=== PATIENT | male | born 1970 | race Caucasian/White ===

== ENCOUNTER 2020-08-10 18:40 | Emergency (ER) | payer OTHER ==
[~2020-08-10] VITALS: Ht 175.3 cm; Wt 77.1 kg
[~2020-08-10 18:40] MED LIST: IBUPROFEN600 MG ORAL; NKM
--- NOTE | 2020-08-10 18:50 | Emergency Room Report ---
History of Present Illness General Chief Complaint: Abdominal Pain Source: Patient Present Illness HPI This patient states that around 1 PM today (6 hours ago) he developed persistent sharp abdominal pain in the middle of his abdomen and on the left side of his abdomen. He has had several episodes of diarrhea. He denies fever or chills. He denies nausea or vomiting. He does have a history of irritable bowel syndrome but states that this is different. He denies dysuria or hematuria. He denies chest pain or shortness of breath. He denies cough or congestion. He has no other complaints. Allergies: Coded Allergies: No Known Allergies (Unverified , 09/18/14) COVID-19 Screening Contact w/high risk pt: No Experienced COVID-19 symptoms?: No COVID-19 Testing performed [employer]PERATOR: No Patient History Past Medical History: none, GERD, other - IBS Past Surgical History: none Social History: Denies: smoking, alcohol use, drug use Reviewed Nursing Documentation: PMH: Agreed; PSxH: Agreed Nursing Documentation-PMH Past Medical History: No Stated History Review of Systems All Other Systems: negative except mentioned in HPI Physical Exam Vital Signs Date Time Temp Pulse Resp B/P (MAP) Pulse Ox O2 Delivery O2 Flow Rate FiO2 08/10/20 18:44 97.5 90 18 149/96 (113) 95 Room Air Sp02 EP Interpretation: reviewed, normal General Appearance: no apparent distress, alert, GCS 15, non-toxic Head: normocephalic, atraumatic Eyes: bilateral eye normal inspection, bilateral eye PERRL ENT: hearing grossly normal, normal pharynx, no angioedema, normal voice Neck: full range of motion, supple/symm/no masses Respiratory: chest non-tender, lungs clear, normal breath sounds, no respiratory distress, no retraction, no accessory muscle use, speaking full sentences Cardiovascular #1: regular rate, rhythm, no edema Gastrointestinal: normal bowel sounds, soft, non-distended, no guarding, no rebound, tenderness - TTP L. abd and LLQ. Full tender Descending colon. Rectal: deferred Musculoskeletal: back normal, normal range of motion, gait/station normal, non- tender Neurologic: alert, motor strength/tone normal, oriented x3, sensory intact, responsive, speech normal Psychiatric: judgement/insight normal, memory normal, mood/affect normal, no suicidal/homicidal ideation Skin: normal color Medical Decision Making Diagnostic Impression: Primary Impression: Colitis ER Course This patient is found to have colitis. Likely this is infectious. I will go ahead and place the patient on a course of oral antibiotics. There is no evidence of an emergency medical condition at this time. The patient is given close return precautions and follow-up instructions. Laboratory Tests Test 08/10/20 18:58 White Blood Count 10.1 K/UL (4.8-10.8) Red Blood Count 5.32 M/UL (4.70-6.10) Hemoglobin 16.8 G/DL (14.2-18.0) Hematocrit 51.0 % (42.0-52.0) Mean Corpuscular Volume 96 FL (80-99) Mean Corpuscular Hemoglobin 31.6 PG (27.0-31.0) H Mean Corpuscular Hemoglobin Concent 33.0 G/DL (32.0-36.0) Red Cell Distribution Width 12.2 % (11.6-14.8) Platelet Count 204 K/UL (150-450) Mean Platelet Volume 7.4 FL (6.5-10.1) Neutrophils (%) (Auto) 71.8 % (45.0-75.0) Lymphocytes (%) (Auto) 20.8 % (20.0-45.0) Monocytes (%) (Auto) 5.1 % (1.0-10.0) Eosinophils (%) (Auto) 1.3 % (0.0-3.0) Basophils (%) (Auto) 1.1 % (0.0-2.0) Urine Color [place] Urine Appearance Clear Urine pH 5 (4.5-8.0) Urine Specific [place] 1.020 (1.005-1.035) Urine Protein 1+ (NEGATIVE) H Urine Glucose (UA) Negative (NEGATIVE) Urine Ketones Negative (NEGATIVE) Urine Blood 1+ (NEGATIVE) H Urine Nitrite Negative (NEGATIVE) Urine Bilirubin Negative (NEGATIVE) Urine Ictotest Negative (NEGATIVE) Urine Urobilinogen Normal MG/DL (0.0-1.0) Urine Leukocyte Esterase Negative (NEGATIVE) Urine RBC 2-4 /HPF (0 - 0) H Urine WBC 0 /HPF (0 - 0) Urine Squamous Epithelial Cells Occasional /LPF Urine Bacteria Occasional /HPF (NONE) Urine Mucus Moderate /LPF (NONE/OCC) H Sodium Level 137 MMOL/L (136-145) Potassium Level 3.9 MMOL/L (3.5-5.1) Chloride Level 101 MMOL/L (98-107) Carbon Dioxide Level 26 MMOL/L (21-32) Blood Urea Nitrogen 16 mg/dL (7-18) Creatinine 1.5 MG/DL (0.55-1.30) H Estimated Glomerular Filtration Rate 49.3 mL/min (>60) Glucose Level 109 MG/DL (74-106) H Calcium Level 9.4 MG/DL (8.5-10.1) Total Bilirubin 0.3 MG/DL (0.2-1.0) Aspartate Amino Transferase (AST) 20 U/L (15-37) Alanine Aminotransferase (ALT) 27 U/L (12-78) Alkaline Phosphatase 76 U/L (46-116) Total Protein 8.5 G/DL (6.4-8.2) H Albumin 4.2 G/DL (3.4-5.0) Globulin 4.3 g/dL Albumin/Globulin Ratio 1.0 (1.0-2.7) Lipase 217 U/L (73-393) Urine Opiates Screen Negative (NEGATIVE) Urine Barbiturates Screen Negative (NEGATIVE) Phencyclidine (PCP) Screen Negative (NEGATIVE) Urine Amphetamines Screen Negative (NEGATIVE) Urine Benzodiazepines Screen Negative (NEGATIVE) Urine Cocaine Screen Negative (NEGATIVE) Urine Marijuana (THC) Screen Negative (NEGATIVE) CT/MRI/US Diagnostic Results CT/MRI/US Diagnostic Results : Imaging Test Ordered: CT abd/pelvis Impression Findings suggestive of possible mild or early inflammatory or infectious distal descending colon colitis extending to the sigmoid colon. See official report in electronic medical record. Last Vital Signs Date Time Temp Pulse Resp B/P (MAP) Pulse Ox O2 Delivery O2 Flow Rate FiO2 08/10/20 18:44 97.5 90 18 149/96 (113) 95 Room Air Status: improved Disposition: HOME, SELF-CARE Condition: Improved Maddie Swift DO Aug 10, 2020 18:50
[2020-08-10] MEDS ORDERED: Omnipaque-300 100ml vial INJ PRN (19:00)
--- NOTE | 2020-08-10 19:02 | NUR ---
ED Nurse Note: Pt ambulated to ED from home d/t lower abdominal pain on the medial region started today at 1300. Pt is AOx4, calm and cooperative to care, VSS on RA, afebrile on triage, breathing even and unlabored. Pt was placed on bed and gown; denies nausea/vomiting/diarrhea.
--- NOTE | 2020-08-10 19:02 | NUR ---
ED Nurse Note: blood and urine specimen collected, sent to lab. hand off given to JOHANN Rubio for continuity of care.
--- NOTE | 2020-08-10 19:03 | NUR ---
ED Nurse Note: Endorsed care of pt, pt is AAOx4. No acute distress noted, c/o abdominal pain, EDMD aware.
[2020-08-10 19:05] VITALS: BP 149/96
[2020-08-10] MEDS ORDERED: Ketorolac 30mg Inj IV ONE (19:15)
[2020-08-10 19:20] LABS: APPEARANCE,URINE CLEAR; BILIRUBIN, URINE NEGATIVE (NEGATIVE); COLOR,URINE AMBER; GLUCOSE, URINE (UA) NEGATIVE (NEGATIVE); KETONES,URINE NEGATIVE (NEGATIVE); LEUKOCYTE ESTERASE ,URINE NEGATIVE (NEGATIVE); NITRITE,URINE NEGATIVE (NEGATIVE); PH,URINE 5 (4.5-8.0); PROTEIN,URINE 1+ (NEGATIVE); UROBILINOGEN,URINE NORMAL MG/DL (0.0-1.0)
[2020-08-10 19:31] LABS: BASOPHILS % (AUTO) 1.1 % (0.0-2.0); EOSINOPHILS % (AUTO) 1.3 % (0.0-3.0); HEMOGLOBIN 16.8 G/DL (14.2-18.0); LYMPHOCYTES % (AUTO) 20.8 % (20.0-45.0); MEAN CORPUSCULAR VOLUME 96 FL (80-99); MONOCYTES % (AUTO) 5.1 % (1.0-10.0); NEUTROPHILS % (AUTO) 71.8 % (45.0-75.0); PLATELET COUNT 204 K/UL (150-450); RED BLOOD COUNT 5.32 M/UL (4.70-6.10); RED CELL DISTRIBUTION WIDTH 12.2 % (11.6-14.8); WHITE BLOOD COUNT 10.1 K/UL (4.8-10.8)
[2020-08-10 19:53] LABS: ALANINE AMINOTRANSFERASE 27 U/L (12-78); ALBUMIN 4.2 G/DL (3.4-5.0); ALKALINE PHOSPHATASE 76 U/L (46-116); ASPARTATE AMINO TRANSFERASE 20 U/L (15-37); BILIRUBIN,TOTAL 0.3 MG/DL (0.2-1.0); BLOOD UREA NITROGEN 16 mg/dL (7-18); CALCIUM 9.4 MG/DL (8.5-10.1); CARBON DIOXIDE 26 MMOL/L (21-32); CREATININE 1.5 MG/DL (0.55-1.30)
[2020-08-10 19:56] LABS: CHLORIDE 101 MMOL/L (98-107); POTASSIUM 3.9 MMOL/L (3.5-5.1); SODIUM 137 MMOL/L (136-145)
--- NOTE | 2020-08-10 20:03 | NUR ---
ED Nurse Note: pt went down to CT via w/c accompanied by CT staff, pt in stable condition.
--- NOTE | 2020-08-10 20:20 | NUR ---
ED Nurse Note: pt back from CT in stable condition.
--- NOTE | 2020-08-10 20:55 | Diagnostic Imaging Report ---
EXAM: CT Abdomen and Pelvis With Intravenous Contrast CLINICAL HISTORY: Abdominal pain. TECHNIQUE: Axial computed tomography images of the abdomen and pelvis with intravenous contrast. CTDI is 6.7 mGy and DLP is 357.7 mGy-cm. One or more of the following dose reduction techniques were used: automated exposure control, adjustment of the mA and/or kV according to patient size, use of iterative reconstruction technique. COMPARISON: No previous study. FINDINGS: Lung bases: Unremarkable. No mass. No consolidation. Pleural space: No pleural effusions are noted. Heart: Heart is normal in size. Mediastinum: Possible distal esophagitis. ABDOMEN: Liver: Diffuse fatty infiltration of the liver is noted. The liver and the spleen enhance uniformly. Gallbladder and bile ducts: Gallbladder is in a semi-contracted state. No calcified stones. No ductal dilation. Pancreas: See below. Spleen: See above. Adrenals: The adrenal gland, the head, body, tail of the pancreas are unremarkable. Kidneys and ureters: Both kidneys are shown to excrete contrast bilaterally. No hydronephrosis. 0.6 cm probable simple cysts posteriorly lower pole region of the left kidney. No follow-up is advised. Nonspecific stranding about the perinephric spaces. Stomach and bowel: Presumed ingested material in the stomach. Mild to moderate quantity of stool throughout the colon. The mid to distal descending colon is in a contracted state. Probable minimal diffuse wall thickening of the mid to distal descending colon extending to the sigmoid colon. Inflammatory or infectious colitis should be considered. Possible mild duodenitis. Loops of small bowel within the left lower quadrant best seen on coronal image 24 exhibit some thickened paredes. No obstruction. PELVIS: Appendix: The appendix is seen on axial image 54 and is unremarkable. Bladder: The bladder is underdistended. Reproductive: Unremarkable as visualized. ABDOMEN and PELVIS: Intraperitoneal space: Unremarkable. No free air. No significant fluid collection. Bones/joints: No acute fracture. No dislocation. Soft tissues: 2 cm umbilical hernia containing mesenteric fat only. Vasculature: Abdominal aorta is normal in contour. Flow is demonstrated within the celiac, SMA, the renal arteries, and MICHELE. No abdominal aortic aneurysm. Lymph nodes: No retroperitoneal lymphadenopathy. IMPRESSION: 1. Diffuse fatty infiltration of the liver. 2. Gallbladder is unremarkable. 3. Nonspecific stranding about the perinephric spaces bilaterally which requires clinical correlation. 4. Findings suggestive of possible mild or early inflammatory or infectious distal descending colon colitis extending to the sigmoid colon. 5. Possible early mild inflammatory enteritis left lower quadrant. 6. No bowel obstruction. 7. The appendix is unremarkable.
[2020-08-10] MEDS ORDERED: CIPROFLOXACIN500 M2 ORAL (21:12)
[2020-08-10 21:22] VITALS: BP 128/79
--- NOTE | 2020-08-10 21:22 | NUR ---
ER DISCHARGE NOTE: Patient is cleared to be discharged per ERMD, pt is aox4, on room air, with stable vital signs. pt was given dc and prescription instructions iwth instructions to f/u with PMD, pt was able to verbalize understanding, pt id band and iv site removed without complications. pt is able to ambulate with steady gait. pt took all belongings.
== END 2020-08-10 19:24 | disposition home or self-care (01) ==
LOC: EMR 19:00
DX: K52.9 Noninfective gastroenteritis and colitis, unspecified (principal); K21.9 Gastro-esophageal reflux disease without esophagitis; K58.9 Irritable bowel syndrome, unspecified
CPT/HCPCS: 36415; 74177; 80053; 80307; 81003; 83690; 85025; 96361; 96374; 99284; J1885; J7030; Q9965